=== PATIENT | female | born 1975 | race Caucasian/White ===

== ENCOUNTER → 2016-12-04 | Outpatient (CLI) | payer BC ==
[~2016-12-04] MED LIST: ADVIL200 MG PO; PRILOSEC20 MG PO; PROTONIX40 MG PO; THERA-VITE W/ B1 TAB PO; ZANTAC (NON-FO150 MG PO
== END ==
LOC: GRAD 13:54
DX: R29.818 Other symptoms and signs involving the nervous system (principal)
CPT/HCPCS: A9577